=== PATIENT | female | born 1940 | race Caucasian/White ===

== ENCOUNTER 2017-03-04 13:04 | Emergency (ER) | payer MEDICARE, MEDICAID ==
[~2017-03-04] VITALS: Ht 147.3 cm; Wt 63.5 kg
[~2017-03-04 13:04] MED LIST: BENICAR40 MG ORAL; BYSTOLIC2.5 MG ORAL; CRESTOR20 MG ORAL; LEVOTHYROXINE25 MCG ORAL
[2017-03-04] MEDS ORDERED: TRAMADOL HCL50 MG ORAL (13:51)
--- NOTE | 2017-03-04 13:58 | Emergency Room Report ---
History of Present Illness General Chief Complaint: Lower Extremity Injury Source: Patient Present Illness HPI The patient fell on Friday. 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 She is not exactly sure why she fell, but was unsteady for an instant. She did not loose consciousness or have chest pain or palpitations. The pain has been constant. She's had difficulty ambulating. The pain now is 9/10 and aching in the knee but also throughout her lower body. She took tramadol 11:30 this morning. This is helpful little bit. She suffers from osteoarthritis. She cannot take nonsteroidal anti-inflammatory medication because of problems with her stomach. No fevers, weakness, chills, NVD, headache or injury, NVD, dysuria, dyspnea, chest pain. Allergies: Coded Allergies: No Known Allergies (Unverified , 10/24/15) Patient History Past Medical History: see triage record Social History: Denies: smoking Social History Narrative Last Menstrual Period: Unk Reviewed Nursing Documentation: PMH: Agreed, PSxH: Agreed Nursing Documentation-PMH Hx Cardiac Problems: Yes - High Cholesterol Hx Hypertension: Yes Hx Asthma: Yes Hx Cancer: No Hx Gastrointestinal Problems: Yes - Gastritis Hx Neurological Problems: No Review of Systems All Other Systems: negative except mentioned in HPI Physical Exam Vital Signs Date Time Temp Pulse Resp B/P (MAP) Pulse Ox O2 Delivery O2 Flow Rate FiO2 03/04/17 13:47 97.9 62 21 135/48 95 Room Air Sp02 EP Interpretation: reviewed, normal - though slightly low General Appearance: well appearing, no apparent distress Head: normocephalic, atraumatic Eyes: bilateral eye normal inspection, bilateral eye PERRL ENT: hearing grossly normal, normal voice Neck: full range of motion, supple Respiratory: chest non-tender, lungs clear, no respiratory distress, speaking full sentences Cardiovascular #1: normal peripheral pulses, regular rate, rhythm Gastrointestinal: normal inspection Musculoskeletal: no calf tenderness, pelvis stable, decreased range of mation - knee - though able to stand and sit without difficulty, swelling - effusion R knee, ambulates with limp. Some tenderness in the pelvis and lower back, other - ligaments stable Neurologic: alert, oriented x3, motor strength/tone normal Psychiatric: mood/affect normal Skin: no rash - or hemotoma Medical Decision Making Diagnostic Impression: Primary Impression: Fall Qualified Codes: W19.XXXA - Unspecified fall, initial encounter Additional Impression: Contusion of right knee Qualified Codes: S80.01XA - Contusion of right knee, initial encounter ER Course Patient presents after a fall on Friday. She's complaining about right knee, hip and back pain. Differential includes fracture, sprain, contusion. Based on [place] knee rules she is able to ambulate however her ages greater than 65 and x-rays are indicated. She took tramadol the pain is still significant. We will give her Tylenol here as she states she cannot tolerate NSAIDs. Also due to the hip and back pain, pelvis x-ray ordered. Xrays without fx, + small effusion, djd and osteoporosis and calcified vessels. Jluis applied by tech. Position excellent and neurovasc normal as checked by me. Patient stable for outpatient observation and treatment. Other X-Ray Diagnostic Results Other X-Ray Diagnostic Results #1: X-Ray ordered: R knee # of Views/Limited Vs Complete: 3 View Indication: Pain EP Interpretation: Yes Interpretation: no dislocation, no soft tissue swelling, no fractures, other - see above Impression: Other Electronically Signed by: Willam Goodman MD Other X-Ray Diagnostic Results #2: X-Ray ordered: pelvis # of Views/Limited Vs Complete: 1 View Indication: Pain EP Interpretation: Yes Interpretation: no dislocation, no soft tissue swelling, no fractures Impression: No acute disease Electronically Signed by: Willam Goodman MD Last Vital Signs Date Time Temp Pulse Resp B/P (MAP) Pulse Ox O2 Delivery O2 Flow Rate FiO2 03/04/17 15:30 135/48 03/04/17 13:47 97.9 62 21 95 Room Air Status: improved Disposition: HOME, SELF-CARE Condition: Improved Scripts Oxycodone/Acetaminophen 5-325* (PERCOCET 5-325 MG TABLET*) 1 Each Tablet 1 TAB ORAL Q6H Y for For Pain, #10 TAB 1/2 to 1 tablet orally Prov: Willam Goodman M.D. 03/04/17 Diclofenac Sodium (VOLTAREN) 100 Gm Gel..gram. 1 APPLIC TP BID, #100 GM Prov: Willam Goodman M.D. 03/04/17 Willam Goodman M.D. Mar 04, 2017 13:58
[2017-03-04] MEDS ORDERED: Acetaminophen 500mg (ES) tab PO ONE (14:00)
--- NOTE | 2017-03-04 15:12 | Diagnostic Imaging Report ---
Indication: Pain 3 views of the right knee were obtained. Findings: No acute fracture, malalignment, or joint effusion are identified. Joint space is relatively well-maintained. Bones are osteopenic. Impression: Negative for acute findings.
--- NOTE | 2017-03-04 15:13 | Diagnostic Imaging Report ---
Indication: pain Findings: Single AP view of the pelvis was performed. No acute fracture is identified. Bilateral hips and sacroiliac joints appear symmetric.There is no malalignment. Bones are osteopenic. Vascular calcifications are present. Surgical clips noted in the pelvis. Soft tissues are unremarkable. Impression: No acute findings.
[2017-03-04] MEDS ORDERED: PERCOCET 5-3251 EACH ORAL (15:26)
[2017-03-04] MEDS ORDERED: VOLTAREN100 G1 TP (15:26)
[2017-03-04 15:30] VITALS: BP 135/48
== END 2017-03-04 15:30 | disposition home or self-care (01) ==
LOC: EMR 14:58
DX: S80.01XA Contusion of right knee, initial encounter (principal); J45.909 Unspecified asthma, uncomplicated; I10 Essential (primary) hypertension; E78.00 Pure hypercholesterolemia, unspecified; W18.30XA Fall on same level, unspecified, initial encounter; Y93.G1 Activity, food preparation and clean up; Y92.9 Unspecified place or not applicable
CPT/HCPCS: 72170; 99284